=== PATIENT | male | born 2000 | race Caucasian/White ===

== ENCOUNTER 2024-07-12 14:24 | Outpatient (CLI) | payer BC, SELFPAY | END 2024-07-12 14:25 | disposition home or self-care (01) | PROVIDERS: Visit Provider Internal Medicine | DX: R53.1 Weakness (principal) | CPT/HCPCS: 80053; 82550; 83735; 86140 ==

== ENCOUNTER 2024-07-15 20:41 | Emergency (ER) | payer BC, SELFPAY ==
[2024-07-15] VITALS (11 sets, daily range): BP systolic 124–145; BP diastolic 80–101; PULSE 88–129; RESP 6–29; TEMP 37.4; O2SAT 98–100; BMI 17.5
--- NOTE | 2024-07-15 21:03 | ED_ITS ---
HPI - Chest Pain General Time Seen by Provider: 21:03 Date Seen: 07/15/24 Chief Complaint: Chest Pain Stated Complaint: Chest Pain Time Seen by Provider: 07/15/24 21:03 Source: patient and RN notes reviewed Mode of arrival: ambulatory Limitations: no limitations History of Present Illness HPI narrative: Imer is a very pleasant 23-year-old, newly diagnosed type 1 insulin-dependent diabetic in May who comes to the emergency room for evaluation regarding chest pain. Imer notes that approximately 2 weeks ago he had a twinge of discomfort in his left chest that went away. Tonight he had the onset of pain that has been persistent, made worse by deep breathing and does not change with movement. Imer has not had any recent cough cold congestion fever or chills. Related Data Home Medications ?Medication ?Instructions ?Recorded ?Confirmed gabapentin 100 mg capsule 300 mg PO TID 07/12/24 07/12/24 BD 07/15/24 hyoscyamine sulfate 0.125 mg 0.125 mg sublingual Q4-6H PRN 07/15/24 07/15/24 sublingual tablet Previous Rx's ?Medication ?Instructions ?Recorded tramadol 50 mg tablet 50 mg PO Q8H PRN pain #30 tabs 07/12/24 Allergies Allergy/AdvReac Type Severity Reaction Status Date / Time No Known Drug Allergies Allergy Verified 07/15/24 22:53 Review of Systems Status of ROS Reports: 10 or more systems reviewed and unremarkable except as noted in History and below [facility] Medical History (Updated 07/16/24 @ 01:18 by Pooja Higgins MD) Muscle pain ?M79.10 - Myalgia, unspecified site (ICD-10) Weakness ?R53.1 - Weakness (ICD-10) IDDM (insulin dependent diabetes mellitus) Social History (Updated 07/12/24 @ 16:21 by Muna Parr ~ [facility]) What is your current living situation?: I presently have a place to live Problems where you live: declined to answer In the past 12 months, utilities in danger of being shut off: no In past 12 months, lack of transportation kept you from medical appts, meetings, work, or getting things needed for daily living: no In the past 12 mos, have been you worried that your food would run out before you had money to buy more?: never true In the past 12 mos, the food you bought just didn't last and you didn't have money to buy more?: never true Non-prescribed substance use: marijuana (any form) How often does anyone, including family, friends and others, physically hurt you : never How often does anyone, including family, friends and others, insult or talk down to you: never How often does anyone, including family, friends and others, threaten you with harm: never How often does anyone, including family, friends and others, scream or curse at you: never Exam Narrative Exam Narrative: Alert and oriented, in distress and tearful. EOM is full. Head is atraumatic. Or have moist mucous membranes. Neck is supple. Heart with a tachycardic rate, normal rhythm. Lungs show coarse rhonchi on the left. Abdomen soft nontender. Lower extremities without edema calf tenderness. Const Vital Signs, click to edit/add: Vital Signs - 24 hr 07/15/24 20:57 07/15/24 22:17 07/15/24 22:30 Temperature 99.3 F Pulse Rate 101 H 100 Pulse Rate [Pulse Oximeter] 129 H Respiratory Rate 22 11 L 13 Blood Pressure Blood Pressure [Right Upper Arm] 124/80 Pulse Oximetry 100 100 100 Oxygen Delivery Method Room Air 07/15/24 22:31 07/15/24 22:55 07/15/24 23:00 Temperature Pulse Rate 94 92 Pulse Rate [Pulse Oximeter] Respiratory Rate 16 10 L 13 Blood Pressure 143/94 H Blood Pressure [Right Upper Arm] Pulse Oximetry 100 99 Oxygen Delivery Method 07/15/24 23:02 07/15/24 23:02 07/15/24 23:15 Temperature Pulse Rate 93 93 88 Pulse Rate [Pulse Oximeter] Respiratory Rate 13 13 25 H Blood Pressure 145/97 H 145/97 H Blood Pressure [Right Upper Arm] Pulse Oximetry 98 98 99 Oxygen Delivery Method 07/15/24 23:30 07/15/24 23:32 07/15/24 23:45 Temperature Pulse Rate 107 H 95 Pulse Rate [Pulse Oximeter] Respiratory Rate 15 6 L 29 H Blood Pressure 142/101 H Blood Pressure [Right Upper Arm] Pulse Oximetry 99 99 Oxygen Delivery Method 07/16/24 00:00 07/16/24 00:02 07/16/24 00:02 Temperature Pulse Rate 98 Pulse Rate [Pulse Oximeter] Respiratory Rate 15 35 H 35 H Blood Pressure 124/91 H 124/91 H Blood Pressure [Right Upper Arm] Pulse Oximetry 98 Oxygen Delivery Method 07/16/24 00:02 07/16/24 00:03 07/16/24 00:15 Temperature Pulse Rate 102 H Pulse Rate [Pulse Oximeter] Respiratory Rate 35 H 14 10 L Blood Pressure 124/91 H Blood Pressure [Right Upper Arm] Pulse Oximetry 95 Oxygen Delivery Method 07/16/24 00:30 07/16/24 00:32 07/16/24 00:46 Temperature Pulse Rate 94 Pulse Rate [Pulse Oximeter] Respiratory Rate 12 12 14 Blood Pressure 148/103 H Blood Pressure [Right Upper Arm] Pulse Oximetry 99 Oxygen Delivery Method Documenting provider has reviewed patient's vital signs: yes Course Course ED Course: Differential diagnosis includes but is not limited to in pneumothorax, PE, bronchitis, myocarditis, pericarditis., pleurisy, anxiety. Will check a CBC, comprehensive panel, CRP, magnesium, D-dimer, troponin EKG chest x-ray. Will leave him on the cardiac rehab nurse and P oximetry at this time. Reevaluation(s) Reevaluation #1: Patient noted to be improved as I did reports the chest x-ray did not show any abnormalities. Heart rate now around 100. Chest x-ray without any abnormalities. Of followed pain medicine with Toradol 15 mg IV. Marked elevation of D-dimer and thus did order CT of the chest. This was negative for any acute findings. While patient did present with primary complaint of chest pain, he has been rubbing his legs and now describes significant weakness ascending over the past 6 weeks. He has been seen at [facility] and was told that he had neuropathy. He has a newly diagnosed diabetic and describes significant pain in his joints. He notes that he had 2 weeks of swelling of the lower extremities after his diagnosis and since that time has increasing discomfort. Attempted to speak to [facility] a but they declined as he has not been a ne urology patient in the past. Was things that we could offer here. Awaiting discussion with ED physician at [facility]. clearly these are not able to talk to triage as patient likely needs lumbar MRI, LP, vitamin levels as well as EMG. Reevaluation #2: Patient noted to have normal blood pressure and pulse at this time. Vital Signs Vital signs: Initial Vital Signs Temperature 99.3 F 07/15/24 20:57 Temperature Source Temporal Artery Scan 07/15/24 20:57 Pulse Rate 129 H 07/15/24 20:57 Pulse Rhythm Regular 07/15/24 20:57 Respiratory Rate 22 07/15/24 20:57 Blood Pressure 124/80 07/15/24 20:57 Blood Pressure Mean 94 07/15/24 20:57 Blood Pressure Position Sitting 07/15/24 20:57 Pulse Oximetry 100 07/15/24 20:57 Oxygen Delivery Method Room Air 07/15/24 20:57 Vital Signs Temperature 99.3 F 07/15/24 20:57 Pulse Rate 129 H 07/15/24 20:57 Respiratory Rate 22 07/15/24 20:57 Blood Pressure 124/80 07/15/24 20:57 Pulse Oximetry 100 07/15/24 20:57 Oxygen Delivery Method Room Air 07/15/24 20:57 Temperature 99.3 F 07/15/24 20:57 Pulse Rate 94 07/16/24 00:30 Respiratory Rate 14 07/16/24 00:46 Blood Pressure 148/103 H 07/16/24 00:32 Pulse Oximetry 99 07/16/24 00:30 Oxygen Delivery Method Room Air 07/15/24 20:57 Medications Administered Medications: Discontinued Medications Generic Name Dose Route Start Last Admin Trade Name Terryq PRN Reason Stop Dose Admin Sodium Chloride 1,000 mls @ 1,000 mls/hr 07/15/24 21:16 07/15/24 22:20 0.9 % Sodium Chloride 1000 Ml IV 07/15/24 22:15 Infused .Q1H BOBBY Infusion Ketorolac Tromethamine 15 mg 07/15/24 21:21 07/15/24 21:40 Ketorolac 15 Mg/Ml Inj IVP 07/15/24 21:22 15 mg ONCE ONE Administration Morphine Sulfate 2 mg 07/15/24 21:09 07/15/24 21:43 Morphine 2 Mg/Ml Inj IVP 07/15/24 21:10 2 mg ONCE ONE Administration Ondansetron HCl 4 mg 07/15/24 21:09 07/15/24 21:41 Ondansetron 2 Mg/Ml Inj IVP 07/15/24 21:10 4 mg ONCE ONE Administration MDM - Chest Pain MDM Narrative Medical decision making narrative: 1. Atypical chest pain-patient noted to have significant stabbing chest pain on the left. Chest x-ray, chest CT without evidence of PE or pneumonia. EKG reassuring and troponin is negative x2. Chest pain resolved at this time. D- dimer greater than 20-patient had a chest CT negative for PE. O2. Saturations within normal limits during patient's entire stay in the ED. 2. Ascending progressive lower extremity weakness and pain-patient notes the onset of tingling of his feet approximately 6 weeks ago. This occurred after 2 weeks of increased lower extremity edema after initial diagnosis of type 1 diabetes. Patient also notes that he probably has celiac disease. Tissue transglutaminase IgA is pending. TSH tonight is normal. Clearly an autoimmune picture is present here. Six weeks ago pain with limited to feet but now has gradually ascended to ankles , then knees and now hips and low back. Examination shows patient to have 4/5 strength. Absence of DTR in the lower extremities. Upper extremity strength and motor intact. Worrisome for CIDP verses other neuromuscular issue. Given this patient will be transferred via private vehicle to [facility] ED for further workup which will likely include LP, lumbar MRI and EMary's. Lab Data Attestation: I reviewed the patient's lab results. Labs: Lab Results 07/15/24 07/15/24 07/15/24 Range/Units 21:09 21:25 21:28 WBC 7.61 (4.50-11.00) K/uL RBC 5.21 (4.30-5.90) m/uL Hgb 15.6 (13.5-17.5) gm/dL Hct 44.1 (37.0-53.0) % MCV 85 (80-100) fL MCH 30 (26-34) pg MCHC 35 (32-36) gm/dL RDW Coeff of Cuong 11.1 L (11.5-15.5) % Plt Count 267 (140-440) K/uL Neut % (Auto) 54.3 (42.0-72.0) % Lymph % (Auto) 35.1 (20-44) % Day % (Auto) 8.5 (0.0-11.0) % Eos % (Auto) 1.1 (0.0-7.0) % Baso % (Auto) 0.9 (0.0-3.0) % Neut # (Auto) 4.13 (1.7-7.0) K/uL Lymph # (Auto) 2.67 (0.90-2.90) K/uL Day # (Auto) 0.60 (0.00-0.90) K/UL Eos # (Auto) 0.08 (0.00-0.50) K/uL Baso # (Auto) 0.07 (0.00-0.30) K/uL Abs Immat Gran (auto) 0.01 (0.00-0.30) K/uL Imm/Tot Granulo (auto) 0.1 % D-Dimer Quant (PE/DVT) > 20.00 H (0.00-0.50) ug/ml Sodium 136 (135-149) mmol/L Potassium 3.9 (3.6-5.1) mmol/L Chloride 99 (96-114) mmol/L Carbon Dioxide 25 (20-32) mmol/L Anion Gap 12 (7-15) mEq/L BUN 19 (5-24) mg/dL Creatinine 0.6 (0.5-1.5) mg/dL Estimated Creat Clear 138.76 Estimated GFR 140 ml/min Glucose 155 H (60-115) mg/dL Calcium 9.8 (8.4-10.6) mg/dL Magnesium 2.1 (1.5-2.6) mg/dL Total Bilirubin 0.6 (0.1-1.5) mg/dL AST 20 (12-35) U/L ALT 31 (4-50) U/L Alkaline Phosphatase 59 (40-150) U/L Total Creatine Kinase 51 L (54-186) U/L C-Reactive Protein < 0.5 L (0.5-1.0) mg/dL Total Protein 7.1 (6.0-8.3) g/dL Albumin 4.8 (3.3-5.0) g/dL Whole Bld Vitamin B1 Whole Bld Vitamin B6 (20.0-125.0) nmol/L Vitamin B12 (243-894) pg/mL TSH 3.120 (0.270-4.20) uIU/mL Tiss Transglutamin IgG <0.82 (0.00-4.99) FLU Tiss Transglutamin IgA <1.02 (0.00-4.99) FLU Anti-Gliadin IgG Deam <0.56 (0.00-4.99) FLU Anti-Gliadin IgA Deam <0.72 (0.00-4.99) FLU Lab Acknowledgement Test Added POC Troponin I 0.00 L (0.01-0.04) ng/ml 07/15/24 07/16/24 07/16/24 Range/Units 23:35 00:07 00:15 WBC (4.50-11.00) K/uL RBC (4.30-5.90) m/uL Hgb (13.5-17.5) gm/dL Hct (37.0-53.0) % MCV (80-100) fL MCH (26-34) pg MCHC (32-36) gm/dL RDW Coeff of Cuong (11.5-15.5) % Plt Count (140-440) K/uL Neut % (Auto) (42.0-72.0) % Lymph % (Auto) (20-44) % Day % (Auto) (0.0-11.0) % Eos % (Auto) (0.0-7.0) % Baso % (Auto) (0.0-3.0) % Neut # (Auto) (1.7-7.0) K/uL Lymph # (Auto) (0.90-2.90) K/uL Day # (Auto) (0.00-0.90) K/UL Eos # (Auto) (0.00-0.50) K/uL Baso # (Auto) (0.00-0.30) K/uL Abs Immat Gran (auto) (0.00-0.30) K/uL Imm/Tot Granulo (auto) % D-Dimer Quant (PE/DVT) (0.00-0.50) ug/ml Sodium (135-149) mmol/L Potassium (3.6-5.1) mmol/L Chloride (96-114) mmol/L Carbon Dioxide (20-32) mmol/L Anion Gap (7-15) mEq/L BUN (5-24) mg/dL Creatinine (0.5-1.5) mg/dL Estimated Creat Clear Estimated GFR ml/min Glucose (60-115) mg/dL Calcium (8.4-10.6) mg/dL Magnesium (1.5-2.6) mg/dL Total Bilirubin (0.1-1.5) mg/dL AST (12-35) U/L ALT (4-50) U/L Alkaline Phosphatase (40-150) U/L Total Creatine Kinase (54-186) U/L C-Reactive Protein (0.5-1.0) mg/dL Total Protein (6.0-8.3) g/dL Albumin (3.3-5.0) g/dL Whole Bld Vitamin B1 Cancelled Whole Bld Vitamin B6 370.9 H (20.0-125.0) nmol/L Vitamin B12 963 H (243-894) pg/mL TSH (0.270-4.20) uIU/mL Tiss Transglutamin IgG (0.00-4.99) FLU Tiss Transglutamin IgA (0.00-4.99) FLU Anti-Gliadin IgG Deam (0.00-4.99) FLU Anti-Gliadin IgA Deam (0.00-4.99) FLU Lab Acknowledgement Test Added POC Troponin I 0.00 L (0.01-0.04) ng/ml 07/16/24 Range/Units 01:00 WBC (4.50-11.00) K/uL RBC (4.30-5.90) m/uL Hgb (13.5-17.5) gm/dL Hct (37.0-53.0) % MCV (80-100) fL MCH (26-34) pg MCHC (32-36) gm/dL RDW Coeff of Cuong (11.5-15.5) % Plt Count (140-440) K/uL Neut % (Auto) (42.0-72.0) % Lymph % (Auto) (20-44) % Day % (Auto) (0.0-11.0) % Eos % (Auto) (0.0-7.0) % Baso % (Auto) (0.0-3.0) % Neut # (Auto) (1.7-7.0) K/uL Lymph # (Auto) (0.90-2.90) K/uL Day # (Auto) (0.00-0.90) K/UL Eos # (Auto) (0.00-0.50) K/uL Baso # (Auto) (0.00-0.30) K/uL Abs Immat Gran (auto) (0.00-0.30) K/uL Imm/Tot Granulo (auto) % D-Dimer Quant (PE/DVT) (0.00-0.50) ug/ml Sodium (135-149) mmol/L Potassium (3.6-5.1) mmol/L Chloride (96-114) mmol/L Carbon Dioxide (20-32) mmol/L Anion Gap (7-15) mEq/L BUN (5-24) mg/dL Creatinine (0.5-1.5) mg/dL Estimated Creat Clear Estimated GFR ml/min Glucose (60-115) mg/dL Calcium (8.4-10.6) mg/dL Magnesium (1.5-2.6) mg/dL Total Bilirubin (0.1-1.5) mg/dL AST (12-35) U/L ALT (4-50) U/L Alkaline Phosphatase (40-150) U/L Total Creatine Kinase (54-186) U/L C-Reactive Protein (0.5-1.0) mg/dL Total Protein (6.0-8.3) g/dL Albumin (3.3-5.0) g/dL Whole Bld Vitamin B1 Whole Bld Vitamin B6 (20.0-125.0) nmol/L Vitamin B12 (243-894) pg/mL TSH (0.270-4.20) uIU/mL Tiss Transglutamin IgG (0.00-4.99) FLU Tiss Transglutamin IgA (0.00-4.99) FLU Anti-Gliadin IgG Deam (0.00-4.99) FLU Anti-Gliadin IgA Deam (0.00-4.99) FLU Lab Acknowledgement Test Added POC Troponin I (0.01-0.04) ng/ml Imaging Data Chest x-ray: Attestation: I have reviewed the pertinent imaging results. Radiologist's impression: Unremarkable cardiomediastinal contours. No lung consolidation. No sign of pleural effusion. No pneumothorax. No acute osseous or soft tissue findings. IMPRESSION: No acute findings. CT scan - chest: Attestation: I have reviewed the pertinent imaging results. Radiologist's impression: Cardiovascular structures: Normal heart size. Normal caliber thoracic aorta and central pulmonary arteries. No acute pulmonary embolism identified. Mediastinum and maik: Minimal soft tissue in the anterior mediastinum likely related to residual thymus. No pathologically enlarged lymph nodes. No pericardial effusion. Lungs and pleura: No focal consolidation, pleural effusion, or pneumothorax. No significant bronchial wall thickening. 3 mm noncalcified pulmonary nodule in the right middle lobe (series 6 image 122). 2 mm noncalcified pulmonary nodule in the anterior right lower lobe (image 96). 3 mm noncalcified pulmonary nodule in the lateral left lower lobe (image 113). Chest wall: No mass or adenopathy. Mild bilateral gynecomastia. Upper abdomen: Large amount of stool in the visualized colon. Otherwise unremarkable. Bones: Unremarkable for age. IMPRESSION: 1. Negative for acute pulmonary embolism. No other acute findings in the chest. 2. Few small noncalcified pulmonary nodules are likely benign given patient age. 3. Large amount of stool in the visualized colon. ECG Data ECG interpretation date: 07/15/24 Interpretation: EKG by my read shows sinus rhythm 93 I do not note any acute ST or T-wave changes. QT and OK intervals are normal. Discharge Plan Discharge Clinical Impression: Atypical chest pain, History of progressive weakness Patient Disposition: [facility] Condition: Improved Additional Instructions: Proceed to the [facility] emergency room. Prescriptions: No Action gabapentin 100 mg capsule 300 mg PO TID tramadol 50 mg tablet 50 mg PO Q8H PRN (Reason: pain) Qty: 30 0RF BD hyoscyamine sulfate 0.125 mg tablet, sublingual 0.125 mg sublingual Q4-6H PRN Stand Alone Forms: [facility] Info Instructions
--- NOTE | 2024-07-15 21:10 | CRLHL7_ITS ---
For Patients: As a result of the Century Cures Act, medical imaging exams and procedure reports are released immediately into your electronic medical record. You may view this report before your referring provider. If you have questions, please contact your health care provider. INDICATION: Left-sided chest pain. TECHNIQUE: Chest 1 view. COMPARISON: None. FINDINGS: Unremarkable cardiomediastinal contours. No lung consolidation. No sign of pleural effusion. No pneumothorax. No acute osseous or soft tissue findings. IMPRESSION: No acute findings. Dictated by Bert Shepherd MD @ 07/15/2024 9:35:58 PM (Electronically Signed)
[2024-07-15 21:38] LABS: Basophils Absolute Auto 0.07 K/uL (0.00-0.30); Basophils Percent Auto 0.9 % (0.0-3.0); Eosinophils Absolute Auto 0.08 K/uL (0.00-0.50); Eosinophils Percent Auto 1.1 % (0.0-7.0); Hematocrit 44.1 % (37.0-53.0); Hemoglobin* 15.6 gm/dL (13.5-17.5); Immature Granulocytes Abs Auto 0.01 K/uL (0.00-0.30); Immature Granulocytes Pct Auto 0.1 %; Lymphocytes Absolute Auto 2.67 K/uL (0.90-2.90); Lymphocytes Percent Auto 35.1 % (20-44); Mean Corpuscular HGB Conc 35 gm/dL (32-36); Mean Corpuscular Hemoglobin 30 pg (26-34); Mean Corpuscular Volume 85 fL (80-100); Monocytes Percent Auto 8.5 % (0.0-11.0); Neutrophils Absolute Auto 4.13 K/uL (1.7-7.0); Neutrophils Percent Auto 54.3 % (42.0-72.0); Platelet Count* 267 K/uL (140-440); RDW Coefficient of Variation % 11.1 % (11.5-15.5); Red Blood Count 5.21 m/uL (4.30-5.90); White Blood Count* 7.61 K/uL (4.50-11.00)
[2024-07-15] MEDS: 0.9 % SODIUM CHLORIDE 1000 ml 1,000 ML IV (21:40)
[2024-07-15] MEDS: KETOROLAC 15 MG/ML inj IVP (21:40)
[2024-07-15] MEDS: ONDANSETRON 2 MG/ML inj 4 MG IVP (21:41)
[2024-07-15 21:42] LABS: Slide Review Reflex No
[2024-07-15] MEDS: MORPHINE 2 MG/ML inj IVP (21:43)
[2024-07-15 21:51] LABS: Chloride* 99 mmol/L (96-114)
[2024-07-15 21:52] LABS: Albumin* 4.8 g/dL (3.3-5.0); Potassium* 3.9 mmol/L (3.6-5.1); Sodium* 136 mmol/L (135-149)
[2024-07-15 21:55] LABS: Alanine Aminotransferase* 31 U/L (4-50); Alkaline Phosphatase* 59 U/L (40-150); Anion Gap 12 mEq/L (7-15); Aspartate Amino Transferase* 20 U/L (12-35); Bilirubin Total* 0.6 mg/dL (0.1-1.5); Blood Urea Nitrogen* 19 mg/dL (5-24); Calcium* 9.8 mg/dL (8.4-10.6); Carbon Dioxide* 25 mmol/L (20-32); Creatinine* 0.6 mg/dL (0.5-1.5); Est. Creatinine Clearance* 138.76; Estimated Glomerular Filt Rate 140 ml/min; Glucose* 155 mg/dL (60-115); Total Protein* 7.1 g/dL (6.0-8.3)
[2024-07-15 21:56] LABS: Magnesium* 2.1 mg/dL (1.5-2.6)
[2024-07-15 21:58] LABS: C Reactive Protein* < 0.5 mg/dL (0.5-1.0)
[2024-07-15 22:12] LABS: D Dimer Quantitative* > 20.00 ug/ml (0.00-0.50)
--- NOTE | 2024-07-15 22:18 | CRLHL7_ITS ---
For Patients: As a result of the Century Cures Act, medical imaging exams and procedure reports are released immediately into your electronic medical record. You may view this report before your referring provider. If you have questions, please contact your health care provider. INDICATION: Elevated D-dimer and chest pain. TECHNIQUE: CT chest angiogram acquired with 95 cc Isovue 370 IV contrast according to the PE protocol. Coronal and sagittal reconstructions. 3D MIPS post-processing was performed. COMPARISON: Same day chest radiograph. FINDINGS: Cardiovascular structures: Normal heart size. Normal caliber thoracic aorta and central pulmonary arteries. No acute pulmonary embolism identified. Mediastinum and maik: Minimal soft tissue in the anterior mediastinum likely related to residual thymus. No pathologically enlarged lymph nodes. No pericardial effusion. Lungs and pleura: No focal consolidation, pleural effusion, or pneumothorax. No significant bronchial wall thickening. 3 mm noncalcified pulmonary nodule in the right middle lobe (series 6 image 122). 2 mm noncalcified pulmonary nodule in the anterior right lower lobe (image 96). 3 mm noncalcified pulmonary nodule in the lateral left lower lobe (image 113). Chest wall: No mass or adenopathy. Mild bilateral gynecomastia. Upper abdomen: Large amount of stool in the visualized colon. Otherwise unremarkable. Bones: Unremarkable for age. IMPRESSION: 1. Negative for acute pulmonary embolism. No other acute findings in the chest. 2. Few small noncalcified pulmonary nodules are likely benign given patient age. 3. Large amount of stool in the visualized colon. Please note that all CT scans at this facility use dose modulation, iterative reconstruction, and/or weight-based dosing when appropriate to reduce radiation dose to as low as reasonably achievable. Dictated by Eda North MD @ 07/15/2024 11:50:22 PM (Electronically Signed)
[2024-07-16] VITALS (7 sets, daily range): BP systolic 124–148; BP diastolic 91–103; PULSE 94–102; RESP 10–35; O2SAT 95–99
[2024-07-16 00:50] LABS: Creatine Kinase* 51 U/L (54-186)
--- NOTE | 2024-07-16 01:41 | ED.NURSE ---
Pt IV covered w/ kerlix and coban. Provided w/ transfer packet. Instructed pt to present to [place] ED. All questions answered. Pt ambulatory w/ parent.
[2024-07-16 02:29] LABS: Vitamin B12* 963 pg/mL (243-894)
[2024-07-17 23:16] LABS: Tissue Transglutaminase Ab IgA <1.02 FLU (0.00-4.99)
[2024-07-17 23:17] LABS: BILL_GLIADPEPA Y; Gliadin Peptide Ab, IgA <0.72 FLU (0.00-4.99)
[2024-07-18 19:09] LABS: Vitamin B6 (Pyridoxal 5-Phos) 370.9 nmol/L (20.0-125.0)
[2024-07-18 20:14] LABS: BILL_GLIADPEPG Y; BILL_TtGG Y; Gliadin Peptide Ab, IgG <0.56 FLU (0.00-4.99); Tissue Transglutaminase Ab IgG <0.82 FLU (0.00-4.99)
== END 2024-07-16 01:42 | disposition short-term general hospital (02) ==
PROVIDERS: Emergency Provider Family Medicine; PCP Internal Medicine
DX: R07.89 Other chest pain (principal); R53.1 Weakness
CPT/HCPCS: 36415; 71045; 71275; 80053; 82550; 82607; 83735; 84207; 84425; 84443; 84484; 85025; 85379; 86140; 86231; 86258; 86364; 93005; 94761; 96374; 96375; 99284; 99285; J1885; J2270; J2405; J7030; Q9967

== ENCOUNTER 2024-09-14 09:30 | Outpatient (CLI) | payer BC, SELFPAY | END 2024-09-14 09:31 | disposition home or self-care (01) | LOC: WOUND 09:32 | PROVIDERS: PCP Internal Medicine; Visit Provider Nurse Practitioner Family | DX: E10.621 Type 1 diabetes mellitus with foot ulcer (principal); E10.40 Type 1 diabetes mellitus with diabetic neuropathy, unspecified; S91.311A Laceration without foreign body, right foot, initial encounter; Z79.4 Long term (current) use of insulin | CPT/HCPCS: G0463 ==

== ENCOUNTER 2024-09-18 15:21 | Outpatient (CLI) | payer BC, SELFPAY | END 2024-09-18 15:22 | disposition home or self-care (01) | LOC: WOUND 15:21 | PROVIDERS: PCP Internal Medicine; Visit Provider Nurse Practitioner Family | DX: S91.311A Laceration without foreign body, right foot, initial encounter (principal); E10.40 Type 1 diabetes mellitus with diabetic neuropathy, unspecified; Z79.4 Long term (current) use of insulin | CPT/HCPCS: G0463 ==

== ENCOUNTER 2024-09-27 08:00 | Outpatient (CLI) | payer BC, SELFPAY | END 2024-09-27 08:01 | disposition home or self-care (01) | LOC: WOUND 08:00 | PROVIDERS: PCP Internal Medicine; Visit Provider Nurse Practitioner Family | DX: S91.311A Laceration without foreign body, right foot, initial encounter (principal); E10.628 Type 1 diabetes mellitus with other skin complications; E10.40 Type 1 diabetes mellitus with diabetic neuropathy, unspecified; Z79.4 Long term (current) use of insulin | CPT/HCPCS: 97597 ==

== ENCOUNTER 2024-10-04 09:28 | Outpatient (CLI) | payer BC, SELFPAY | END 2024-10-04 09:29 | disposition home or self-care (01) | LOC: WOUND 09:28 | PROVIDERS: PCP Internal Medicine; Visit Provider Physician Assistant | DX: S91.311A Laceration without foreign body, right foot, initial encounter (principal); E10.628 Type 1 diabetes mellitus with other skin complications; E10.40 Type 1 diabetes mellitus with diabetic neuropathy, unspecified; Z79.4 Long term (current) use of insulin | CPT/HCPCS: 97597 ==

== ENCOUNTER 2024-10-06 08:46 | Emergency (ER) | payer BC, SELFPAY ==
[2024-10-06 08:55] VITALS: BP 114/78; PULSE 112; RESP 14; TEMP 36.6; O2SAT 98; BMI 19.0
--- NOTE | 2024-10-06 09:20 | ED_ITS ---
HPI - General Adult General Date Seen: 10/06/24 Chief complaint: Unspecified Complaint, Adult Stated complaint: ran out of prescription Time Seen by Provider: 10/06/24 08:59 Source: patient and family Mode of arrival: ambulatory Limitations: no limitations History of Present Illness HPI narrative: Patient is a very nice 24-year-old gentleman with a history of insulin-dependent diabetes, and a diagnosis of treatment induced neuropathy. He has ongoing Lyrica, 150 mg p.o. q.i.d., he went to fill his prescription, this week, and noted that they told him he could not refill it as he was early, he over the past month as changed his prescription under the guise of his physician at the [facility], to 150 q.i.d.. He did not get a new prescription, was using his old prescription of 150 t.i.d. and thus use did up early. He went to urgent care this morning, as he has run out totally of his medication, and his pain is ramping up. And they were unable to help him there. Describes pain in his legs, no history of fevers chills or other issues he has no neurologic dysfunction in his legs, Anderson normally is able to move around there is no swelling. Related Data Home Medications ?Medication ?Instructions ?Recorded ?Confirmed BD 07/15/24 duloxetine 60 mg capsule,delayed 60 mg PO BID 09/10/24 10/06/24 release pregabalin 150 mg capsule 150 mg PO QID 09/10/2410/06 Previous Rx's ?Medication ?Instructions ?Recorded pregabalin 150 mg capsule 150 mg PO QID #28 caps 10/06 Allergies Allergy/AdvReac Type Severity Reaction Status Date / Time No Known Drug Allergies Allergy Verified 10/06/24 08:55 Review of Systems Status of ROS: Reports: 10 or more systems reviewed and unremarkable except as noted in History and below [facility] Medical History Muscle pain ?M79.10 - Myalgia, unspecified site (ICD-10) Weakness ?R53.1 - Weakness (ICD-10) IDDM (insulin dependent diabetes mellitus) Social History What is your current living situation?: I presently have a place to live Problems where you live: declined to answer In the past 12 months, utilities in danger of being shut off: no In past 12 months, lack of transportation kept you from medical appts, meetings, work, or getting things needed for daily living: no In the past 12 mos, have been you worried that your food would run out before you had money to buy more?: never true In the past 12 mos, the food you bought just didn't last and you didn't have money to buy more?: never true Non-prescribed substance use: marijuana (any form) How often does anyone, including family, friends and others, physically hurt you : never How often does anyone, including family, friends and others, insult or talk down to you: never How often does anyone, including family, friends and others, threaten you with harm: never How often does anyone, including family, friends and others, scream or curse at you: never Exam Narrative: Exam Narrative: Examination room 2 shows a gentleman in no apparent distress, with slightly tachycardic on his vitals. Likely to some degree from withdrawal of his medication. Pupils equal round reactive to light he moves his neck normally, no evidence of any tremors, neurologically intact walking around normally. Const: Vital Signs, click to edit/add: Vital Signs - 24 hr 10/06/24 08:55 Temperature 98 F Pulse Rate [Pulse Oximeter] 112 H Respiratory Rate 14 Blood Pressure [Ri ght Upper Arm] 114/78 Pulse Oximetry 98 Oxygen Delivery Me thod Room Air Course Vital Signs Vital signs: Initial Vital Signs Temperature 98 F 10/06/24 08:55 Temperature Source Temporal Artery Scan 10/06/24 08:55 Pulse Rate 112 H 10/06/24 08:55 Respiratory Rate 14 10/06/24 08:55 Blood Pressure 114/78 10/06/24 08:55 Blood Pressure Mean 90 10/06/24 08:55 Blood Pressure Position Sitting 10/06/24 08:55 Pulse Oximetry 98 10/06/24 08:55 Oxygen Delivery Method Room Air 10/06/24 08:55 Vital Signs Temperature 98 F 10/06/24 08:55 Pulse Rate 112 H 10/06/24 08:55 Respiratory Rate 14 10/06/24 08:55 Blood Pressure 114/78 10/06/24 08:55 Pulse Oximetry 98 10/06/24 08:55 Oxygen Delivery Method Room Air 10/06/24 08:55 Temperature 98 F 10/06/24 08:55 Pulse Rate 112 H 10/06/24 08:55 Respiratory Rate 14 10/06/24 08:55 Blood Pressure 114/78 10/06/24 08:55 Pulse Oximetry 98 10/06/24 08:55 Oxygen Delivery Method Room Air 10/06/24 08:55 Medical Decision Making MDM Narrative Medical decision making narrative: Review of the [employer] shows a normal pattern of use of his Lyrica, I can see but however happened with his dosing. Will give him a new prescription for 1 weeks worth of Lyrica at 150 mg p.o. q.i.d.. We will give him a dose here today also. Will have him contact his doctor at [place] after the holiday weekend. He will return as needed. Discharge Plan Discharge Clinical Impression: Neuropathy, IDDM (insulin dependent diabetes mellitus) Patient Disposition: Home w/ Parent or Adult Condition: Stable Additional Instructions: Home rest I sent a prescription to her pharmacy. Contact her [place] physician for ongoing prescriptions. Prescriptions: New pregabalin 150 mg capsule 150 mg PO QID Qty: 28 0RF No Action duloxetine 60 mg capsule,delayed release(DR/EC) 60 mg PO BID pregabalin 150 mg capsule 150 mg PO QID BD Follow Up/Referrals: Néstor Patton MD [Staff Physician, Internal Medicine] Stand Alone Forms: [employer] Info Instructions
[2024-10-06] MEDS: PREGABALIN 75 MG CAPSULE 150 MG PO (09:36)
== END 2024-10-06 09:40 | disposition home or self-care (01) ==
LOC: ED 09:24
PROVIDERS: Emergency Provider Family Medicine; PCP Family Medicine
DX: G62.0 Drug-induced polyneuropathy (principal); Z79.4 Long term (current) use of insulin
CPT/HCPCS: 99283

== ENCOUNTER 2024-10-11 08:33 | Outpatient (CLI) | payer BC, SELFPAY | END 2024-10-11 08:34 | disposition home or self-care (01) | LOC: WOUND 08:34 | PROVIDERS: PCP Family Medicine; Visit Provider Nurse Practitioner Family | DX: E10.621 Type 1 diabetes mellitus with foot ulcer (principal); E10.40 Type 1 diabetes mellitus with diabetic neuropathy, unspecified; L97.512 Non-pressure chronic ulcer of other part of right foot with fat layer exposed | CPT/HCPCS: 97597 ==

== ENCOUNTER 2024-10-15 22:06 | Emergency (ER) | payer BC, SELFPAY ==
[2024-10-15 22:09] VITALS: BP 116/76; PULSE 113; RESP 16; TEMP 36.4; O2SAT 99; BMI 18.8
--- NOTE | 2024-10-15 23:23 | ED.GENADULT ---
HPI - General Adult General Chief complaint: Extremity Pain/Injury, Lower Stated complaint: nerve pain L foot Time Seen by Provider: 10/15/24 23:23 History of Present Illness HPI narrative: arch left foot swells. pt has increased difficulty in walking. pt has two open wounds to feet, one on left and one on right. Pt reports. Pt being seen for increase pain to feet. 24-year-old young man presenting to the emergency department with concern of increased pain in his feet such that unable to sleep. Accompanied by parents with whom he lives. Notes a history of treatment induced neuropathy where has markedly improved his blood sugars; at least his hemoglobin A1c has dropped in half and he has had increased lower extremity pain. The leg pains have improved and now is left with a foot pain/neuropathy. Periodically and now over the last 3 days his feet well get red and warm and swollen. Today though it particularly has flared in his arch in addition to his feet but the arch more than anywhere else of his left foot. He has resorted to crawling around the house. Is been taking his Lyrica now having run out with last ER visit 9 days ago; taking them regularly now but do not seem to help entirely. Ibuprofen acetaminophen has not helped either. Does also have a prescription for duloxetine. Does see the wound clinic for some healing wounds on dorsum of both feet. Treating these with an iodine cream. With suspected have has cellulitis visit on the . Anticipate seeing his quantitative developer shortly. No fever. No unusual wound drainage. Did have some gluten this last week. Unclear contribution to symptoms? Related Data Home Medications ?Medication ?Instructions ?Recorded ?Confirmed BD 07/15/24 10/12/24 duloxetine 60 mg capsule,delayed 60 mg PO BID 09/10/24 10/12/24 release pregabalin 150 mg capsule 150 mg PO QID 09/10/24 10/12/24 Previous Rx's ?Medication ?Instructions ?Recorded pregabalin 150 mg capsule 150 mg PO QID #28 caps 10/06/24 Allergies Allergy/AdvReac Type Severity Reaction Status Date / Time No Known Drug Allergies Allergy Verified 10/12/24 08:14 Review of Systems Status of ROS: Reports: 6 or more systems reviewed and unremarkable except as noted in History and below [facility] Medical History Muscle pain ?M79.10 - Myalgia, unspecified site (ICD-10) Weakness ?R53.1 - Weakness (ICD-10) IDDM (insulin dependent diabetes mellitus) Social History What is your current living situation?: I presently have a place to live Problems where you live: declined to answer In the past 12 months, utilities in danger of being shut off: no In past 12 months, lack of transportation kept you from medical appts, meetings, work, or getting things needed for daily living: no In the past 12 mos, have been you worried that your food would run out before you had money to buy more?: never true In the past 12 mos, the food you bought just didn't last and you didn't have money to buy more?: never true Smoking Status: Never smoker Do you use any of these nicotine containing products: None Second hand tobacco smoke exposure: No How often do you have a drink containing alcohol: never How often do you have six or more drinks on one occasion: Never AUDIT-C Alcohol total score: 0 Non-prescribed substance use: marijuana (any form) How often does anyone, including family, friends and others, physically hurt you: never How often does anyone, including family, friends and others, insult or talk down to you: never How often does anyone, including family, friends and others, threaten you with harm: never How often does anyone, including family, friends and others, scream or curse at you: never service: No Exam Narrative: Exam Narrative: Flatter affect. NAD. Breathing easily. Heart is in elevated rate. Extremities are well perfused. Both feet are generally puffy up through the ankles. Mild erythema and mild calor diffusely. Left more so than right. Tender to physical therapy instructor touch at times. Band-Aids over healing wounds on the dorsum of the foot. I do not see surrounding induration or erythema to suggest specific wound infection. No fluctuance in any particular area on the feet. Const: Vital Signs, click to edit/add: Vital Signs - 24 hr 10/15/24 22:09 Temperature 97.5 F L Pulse Rate [Left P ulse Oximeter] 113 H Respiratory Rate 16 Blood Pressure [Ri ght Upper Arm] 116/76 Pulse Oximetry 99 Oxygen Delivery Me thod Room Air Documenting provider has reviewed patient's vital signs: yes Course Vital Signs Vital signs: Initial Vital Signs Temperature 97.5 F L 10/15/24 22:09 Temperature Source Temporal Artery Scan 10/15/24 22:09 Pulse Rate 113 H 10/15/24 22:09 Pulse Rhythm Regular 10/15/24 22:09 Respiratory Rate 16 10/15/24 22:09 Blood Pressure 116/76 10/15/24 22:09 Blood Pressure Mean 89 10/15/24 22:09 Blood Pressure Position Sitting 10/15/24 22:09 Pulse Oximetry 99 10/15/24 22:09 Oxygen Delivery Method Room Air 10/15/24 22:09 Vital Signs Temperature 97.5 F L 10/15/24 22:09 Pulse Rate 113 H 10/15/24 22:09 Respiratory Rate 16 10/15/24 22:09 Blood Pressure 116/76 10/15/24 22:09 Pulse Oximetry 99 10/15/24 22:09 Oxygen Delivery Method Room Air 10/15/24 22:09 Temperature 97.5 F L 10/15/24 22:09 Pulse Rate 113 H 10/15/24 22:09 Respiratory Rate 16 10/15/24 22:09 Blood Pressure 116/76 10/15/24 22:09 Pulse Oximetry 99 10/15/24 22:09 Oxygen Delivery Method Room Air 10/15/24 22:09 Medications Administered Medications: Discontinued Medications Generic Name Dose Route Start Last Admin Trade Name Freq PRN Reason Stop Dose Admin Oxycodone/Acetaminophen 2 tab 10/15/24 23:39 10/15/24 23:47 Oxycodone/Apap 5-325 Tablet PO 10/15/24 23:40 2 tab ONCE ONE Administration Medical Decision Making MDM Narrative Medical decision making narrative: This could also represent cellulitis. I would check labs in this regard. Offer some pain relief simply with opiate for now. Potential concerns related to opiates were discussed with Imer and his parents. With treatment as above is notably improved on reassessment. Labs are reassuring See patient discharge plan for further discussion Continue to take care with your diet. As discussed, giving you a prescription of Percocet from [facility] for temporary use. Please follow-up with your quantitative developer or primary care to discuss further pain medication/management needs if necessary. Medical Records Medical records reviewed: Yes I reviewed the patient's medical records Lab Data Lab results reviewed: Yes I reviewed the patient's lab results Labs: Lab Results 10/15/24 Range/Units 00:10 WBC 5.34 (4.50-11.00) K/uL RBC 4.66 (4.30-5.90) m/uL Hgb 13.4 L (13.5-17.5) gm/dL Hct 39.6 (37.0-53.0) % MCV 85 (80-100) fL MCH 29 (26-34) pg MCHC 34 (32-36) gm/dL RDW Coeff of Cuong 12.5 (11.5-15.5) % Plt Count 229 (140-440) K/uL Neut % (Auto) 59.9 (42.0-72.0) % Lymph % (Auto) 24.2 (20-44) % [place] % (Auto) 8.6 (0.0-11.0) % Eos % (Auto) 6.6 (0.0-7.0) % Baso % (Auto) 0.7 (0.0-3.0) % Neut # (Auto) 3.20 (1.7-7.0) K/uL Lymph # (Auto) 1.29 (0.90-2.90) K/uL [place] # (Auto) 0.50 (0.00-0.90) K/UL Eos # (Auto) 0.35 (0.00-0.50) K/uL Baso # (Auto) 0.04 (0.00-0.30) K/uL Abs Immat Gran (auto) 0.00 (0.00-0.30) K/uL Imm/Tot Granulo (auto) 0.0 % Sodium 139 (135-149) mmol/L Potassium 3.9 (3.6-5.1) mmol/L Chloride 103 (96-114) mmol/L Carbon Dioxide 30 (20-32) mmol/L Anion Gap 6 L (7-15) mEq/L BUN 17 (5-24) mg/dL Creatinine 0.7 (0.5-1.5) mg/dL Estimated Creat Clear 126.36 Estimated GFR 133 ml/min Glucose 263 H (60-115) mg/dL Calcium 9.2 (8.4-10.6) mg/dL C-Reactive Protein < 0.5 L (0.5-1.0) mg/dL Discharge Plan Discharge Clinical Impression: Neuropathic pain Patient Disposition: Home w/ Parent or Adult Condition: Improved Additional Instructions: Continue to take care with your diet. As discussed, giving you a prescription of Percocet from [facility] for temporary use. Please follow-up with your quantitative developer or primary care to discuss further pain medication/management needs if necessary. Prescriptions: No Action duloxetine 60 mg capsule,delayed release(DR/EC) 60 mg PO BID pregabalin 150 mg capsule 150 mg PO QID pregabalin 150 mg capsule 150 mg PO QID Qty: 28 0RF BD Follow Up/Referrals: Jason Dahl MD [Primary Care Provider, Family Practice] Stand Alone Forms: [place] Info Instructions
[2024-10-15] MEDS: OxyCODONE/APAP 5-325 TABLET 2 TAB PO (23:47)
[2024-10-16 00:15] LABS: Hematocrit 39.6 % (37.0-53.0); Hemoglobin* 13.4 gm/dL (13.5-17.5); Immature Granulocytes Abs Auto 0.00 K/uL (0.00-0.30); Immature Granulocytes Pct Auto 0.0 %; Lymphocytes Absolute Auto 1.29 K/uL (0.90-2.90); Mean Corpuscular HGB Conc 34 gm/dL (32-36); Mean Corpuscular Hemoglobin 29 pg (26-34); Mean Corpuscular Volume 85 fL (80-100); RDW Coefficient of Variation % 12.5 % (11.5-15.5); Red Blood Count 4.66 m/uL (4.30-5.90); White Blood Count* 5.34 K/uL (4.50-11.00)
[2024-10-16 00:35] LABS: Slide Review Reflex No
[2024-10-16 00:48] LABS: Chloride* 103 mmol/L (96-114); Potassium* 3.9 mmol/L (3.6-5.1); Sodium* 139 mmol/L (135-149)
[2024-10-16 00:51] LABS: Anion Gap 6 mEq/L (7-15); Blood Urea Nitrogen* 17 mg/dL (5-24); Calcium* 9.2 mg/dL (8.4-10.6); Carbon Dioxide* 30 mmol/L (20-32); Creatinine* 0.7 mg/dL (0.5-1.5); Est. Creatinine Clearance* 126.36; Estimated Glomerular Filt Rate 133 ml/min; Glucose* 263 mg/dL (60-115)
== END 2024-10-16 01:27 | disposition home or self-care (01) ==
PROVIDERS: Emergency Provider Family Medicine; PCP Family Medicine
DX: M79.672 Pain in left foot (principal); M79.2 Neuralgia and neuritis, unspecified
CPT/HCPCS: 36415; 80048; 85025; 86140; 99283; 99284; A9270

== ENCOUNTER 2024-10-18 08:48 | Outpatient (CLI) | payer BC, SELFPAY | END 2024-10-18 08:49 | disposition home or self-care (01) | LOC: WOUND 08:48 | PROVIDERS: PCP Family Medicine; Visit Provider Nurse Practitioner Family | DX: E10.621 Type 1 diabetes mellitus with foot ulcer (principal); E10.40 Type 1 diabetes mellitus with diabetic neuropathy, unspecified; L97.512 Non-pressure chronic ulcer of other part of right foot with fat layer exposed; Z79.4 Long term (current) use of insulin | CPT/HCPCS: 97597 ==

== ENCOUNTER 2024-10-25 09:04 | Outpatient (CLI) | payer BC, SELFPAY | END 2024-10-25 09:05 | disposition home or self-care (01) | LOC: WOUND 09:04 | PROVIDERS: PCP Family Medicine; Visit Provider Nurse Practitioner Family | DX: E10.621 Type 1 diabetes mellitus with foot ulcer (principal); E10.40 Type 1 diabetes mellitus with diabetic neuropathy, unspecified; L97.512 Non-pressure chronic ulcer of other part of right foot with fat layer exposed; L97.522 Non-pressure chronic ulcer of other part of left foot with fat layer exposed; Z79.4 Long term (current) use of insulin | CPT/HCPCS: 97597; G0463 ==

== ENCOUNTER 2024-11-01 08:42 | Outpatient (CLI) | payer BC, SELFPAY | END 2024-11-01 08:43 | disposition home or self-care (01) | LOC: WOUND 08:42 | PROVIDERS: PCP Family Medicine; Visit Provider Nurse Practitioner Family | DX: E10.621 Type 1 diabetes mellitus with foot ulcer (principal); E10.40 Type 1 diabetes mellitus with diabetic neuropathy, unspecified; L97.512 Non-pressure chronic ulcer of other part of right foot with fat layer exposed; Z79.4 Long term (current) use of insulin | CPT/HCPCS: 11042 ==

== ENCOUNTER 2024-11-08 08:47 | Outpatient (CLI) | payer BC, SELFPAY | END 2024-11-08 08:48 | disposition home or self-care (01) | LOC: WOUND 08:47 | PROVIDERS: PCP Family Medicine; Visit Provider Nurse Practitioner Family | DX: E10.621 Type 1 diabetes mellitus with foot ulcer (principal); E10.40 Type 1 diabetes mellitus with diabetic neuropathy, unspecified; L97.512 Non-pressure chronic ulcer of other part of right foot with fat layer exposed; Z79.4 Long term (current) use of insulin | CPT/HCPCS: 97597 ==

== ENCOUNTER 2024-11-15 08:47 | Outpatient (CLI) | payer BC, SELFPAY | END 2024-11-15 08:48 | disposition home or self-care (01) | LOC: WOUND 08:47 | PROVIDERS: PCP Family Medicine; Visit Provider Nurse Practitioner Family | DX: E10.40 Type 1 diabetes mellitus with diabetic neuropathy, unspecified (principal); Z86.31 Personal history of diabetic foot ulcer; Z79.4 Long term (current) use of insulin | CPT/HCPCS: G0463 ==